=== PATIENT | male | born 1970 | race Caucasian/White ===

== ENCOUNTER 2016-06-07 10:59 | Observation (INO) | payer BC ==
[2016-06-07 11:09] VITALS: RESP 18
[2016-06-07] MEDS ORDERED: RX INFO: IV CONTRAST WAS GIVEN 1 EACH MISC MISCELLANE PRN (11:27)
[2016-06-07] MEDS ORDERED: IPRATROPIUM-ALBUTEROL 3 ML NEB INHALATION STA (11:27)
[2016-06-07] MEDS ORDERED: ENALAPRILAT 1.25 MG/ML 1 ML VIAL IVP STA (11:28)
--- NOTE | 2016-06-07 11:31 | ED ---
General Adult HPI - General Chief complaint: Shortness of Breath Stated complaint: SOB, Chest pain Time Seen by Provider: 06/07/16 11:20 Source: patient, family, RN notes reviewed Mode of arrival: wheelchair Limitations: no limitations - History of Present Illness Initial comments: Patient is a pleasant 46-year-old male presenting to the emergency Department with dyspnea. Patient was diagnosed pneumonia back in January. Patient has had persistent symptoms since that time. Patient has had a decent amount of coughing. Patient occasionally has chest pain. Patient has had recurrent episodes of shortness of breath. Patient has been on antibiotics. Patient has been on steroids twice. Patient was also recently started on an inhaler. Patient has been using the inhaler several times daily. Symptoms are exertional. No leg pain or leg swelling. Patient has not had recent fevers. - Related Data Home Medications Medication Instructions Recorded Confirmed Albuterol Inhaler [Ventolin Hfa 2 puff INHALATION RT-Q4H PRN 06/07/16 06/07/16 Inhaler] Aspirin [Adult Low Dose Aspirin EC] 81 mg PO DAILY 06/07/16 06/07/16 Niacinamide [Niacin] 500 mg PO DAILY 06/07/16 06/07/16 Potassium 99 mg PO DAILY 06/07/16 06/07/16 Triamterene/Hydrochlorothiazid 1 cap PO DAILY 06/07/16 06/07/16 [Triamterene-Hctz 37.5-25 mg Cp] Verapamil Sr [Isoptin Sr] 240 mg PO DAILY 06/07/16 06/07/16 Allergies Allergy/AdvReac Type Severity Reaction Status Date / Time banana Allergy Anaphylaxis Verified 06/07/16 11:34 cat dander Allergy Swelling Verified 06/07/16 11:34 Review of Systems ROS Statement: Those systems with pertinent positive or pertinent negative responses have been documented in the HPI. ROS Other: All systems not noted in ROS Statement are negative. Constitutional: Denies: weakness Eyes: Denies: eye pain ENT: Denies: ear pain Respiratory: Reports: cough, dyspnea Cardiovascular: Reports: chest pain Endocrine: Reports: fatigue Gastrointestinal: Denies: abdominal pain Genitourinary: Denies: dysuria Musculoskeletal: Denies: back pain Skin: Denies: rash Neurological: Denies: headache Past Medical History Past Medical History: Hypertension, Pneumonia Additional Past Medical History / Comment(s): back pain History of Any Multi-Drug Resistant Organisms: None Reported Past Surgical History: Back Surgery Additional Past Surgical History / Comment(s): cervical fusion Past Psychological History: No Psychological Hx Reported Smoking Status: Never smoker Past Alcohol Use History: Daily Past Drug Use History: Marijuana General Exam Limitations: no limitations General appearance: alert, in no apparent distress Head exam: Present: atraumatic Eye exam: Present: normal appearance, PERRL ENT exam: Present: normal oropharynx Neck exam: Present: normal inspection Respiratory exam: Present: decreased breath sounds Cardiovascular Exam: Present: regular rate, normal rhythm Expanded Peripheral pulses: 2+: Radial (R), Radial (L), Posterior Tibialis (R), Posterior Tibialis (L) GI/Abdominal exam: Present: soft. Absent: tenderness Extremities exam: Present: normal inspection. Absent: pedal edema, calf tenderness Neurological exam: Present: alert Psychiatric exam: Present: normal affect, normal mood Skin exam: Absent: rash Course Vital Signs 06/07/16 06/07/16 06/07/16 11:04 11:53 12:03 Pulse Rate 88 71 77 Respiratory 18 Rate Blood Pressure 214/114 O2 Sat by Pulse 98 Oximetry EKG Findings - EKG Comments: EKG Findings:: Normal sinus rhythm at 79. [place] 114. QRS 102. QT 38. QTC 435. Normal axis. Normal QRS. Normal ST-T. Medical Decision Making - Medical Decision Making Patient reevaluated and resting comfortably in bed. Patient does have some diminished air exchange still. Mild wheeze. Case discussed in detail with Dr. Oglesby, who will admit for hospital call. - Lab Data Result diagrams: 06/07/16 11:58 06/07/16 11:58 Lab Results 06/07/16 06/07/16 06/07/16 Range/Units 11:58 11:58 11:58 WBC 7.9 (3.8-10.6) k/uL RBC 5.67 (4.30-5.90) m/uL Hgb 17.2 (13.0-17.5) gm/dL Hct 49.7 (39.0-53.0) % MCV 87.7 (80.0-100.0) fL MCH 30.3 (25.0-35.0) pg MCHC 34.6 (31.0-37.0) g/dL RDW 12.9 (11.5-15.5) % Plt Count 219 (150-450) k/uL Neutrophils % 60 % Lymphocytes % 17 % Monocytes % 6 % Eosinophils % 13 % Basophils % 2 % Neutrophils # 4.7 (1.3-7.7) k/uL Lymphocytes # 1.3 (1.0-4.8) k/uL Monocytes # 0.5 (0-1.0) k/uL Eosinophils # 1.0 H (0-0.7) k/uL Basophils # 0.1 (0-0.2) k/uL PT (9.0-12.0) sec INR (<1.1) APTT (22.0-30.0) sec Sodium 139 (137-145) mmol/L Potassium 4.0 (3.5-5.1) mmol/L Chloride 104 (98-107) mmol/L Carbon Dioxide 23 (22-30) mmol/L Anion Gap 12 mmol/L BUN 14 (9-20) mg/dL Creatinine 0.90 (0.66-1.25) mg/dL Est GFR (MDRD) Af Amer >60 (>60 ml/min/1.73 sqM) Est GFR (MDRD) Non-Af >60 (>60 ml/min/1.73 sqM) Glucose 93 (74-99) mg/dL Calcium 10.2 (8.4-10.2) mg/dL Total Bilirubin 1.0 (0.2-1.3) mg/dL AST 24 (17-59) U/L ALT 38 (21-72) U/L Alkaline Phosphatase 55 (38-126) U/L Total Creatine Kinase 65 (55-170) U/L CK-MB (CK-2) 0.6 (0.0-2.4) ng/mL CK-MB (CK-2) Rel Index 0.9 Troponin I <0.012 (0.000-0.034) ng/mL NT-Pro-B Natriuret Pep pg/mL Total Protein 7.7 (6.3-8.2) g/dL Albumin 4.6 (3.5-5.0) g/dL 06/07/16 06/07/16 Range/Units 11:58 11:58 WBC (3.8-10.6) k/uL RBC (4.30-5.90) m/uL Hgb (13.0-17.5) gm/dL Hct (39.0-53.0) % MCV (80.0-100.0) fL MCH (25.0-35.0) pg MCHC (31.0-37.0) g/dL RDW (11.5-15.5) % Plt Count (150-450) k/uL Neutrophils % % Lymphocytes % % Monocytes % % Eosinophils % % Basophils % % Neutrophils # (1.3-7.7) k/uL Lymphocytes # (1.0-4.8) k/uL Monocytes # (0-1.0) k/uL Eosinophils # (0-0.7) k/uL Basophils # (0-0.2) k/uL PT 10.8 (9.0-12.0) sec INR 1.1 (<1.1) APTT 25.5 (22.0-30.0) sec Sodium (137-145) mmol/L Potassium (3.5-5.1) mmol/L Chloride (98-107) mmol/L Carbon Dioxide (22-30) mmol/L Anion Gap mmol/L BUN (9-20) mg/dL Creatinine (0.66-1.25) mg/dL Est GFR (MDRD) Af Amer (>60 ml/min/1.73 sqM) Est GFR (MDRD) Non-Af (>60 ml/min/1.73 sqM) Glucose (74-99) mg/dL Calcium (8.4-10.2) mg/dL Total Bilirubin (0.2-1.3) mg/dL AST (17-59) U/L ALT (21-72) U/L Alkaline Phosphatase (38-126) U/L Total Creatine Kinase (55-170) U/L CK-MB (CK-2) (0.0-2.4) ng/mL CK-MB (CK-2) Rel Index Troponin I (0.000-0.034) ng/mL NT-Pro-B Natriuret Pep 48 pg/mL Total Protein (6.3-8.2) g/dL Albumin (3.5-5.0) g/dL - Radiology Data Radiology results: image reviewed (Computed tomography scan of the chest shows no pulmonary embolism) Disposition Clinical Impression: Dyspnea Disposition: ADMITTED IP TO THIS HOSP
[2016-06-07 12:22] LABS: Basophils # (A) 0.1 k/uL (0-0.2); Basophils % (A) 2 %; CH 31.3; CHCM 35.8; Eosinophils % (A) 13 %; HCT 49.7 % (39.0-53.0); HDW 2.72; HGB 17.2 gm/dL (13.0-17.5); Luc # (Auto) 0.22; Luc % (Auto) 3; Lymphocytes # (A) 1.3 k/uL (1.0-4.8); Lymphocytes % (A) 17 %; MCH 30.3 pg (25.0-35.0); MCHC 34.6 g/dL (31.0-37.0); MCV 87.7 fL (80.0-100.0); Mean Platelet Volume 6.8; Monocytes # (A) 0.5 k/uL (0-1.0); Monocytes % (A) 6 %; Neutrophils # (A) 4.7 k/uL (1.3-7.7); Neutrophils % (A) 60 %; RBC 5.67 m/uL (4.30-5.90); RDW 12.9 % (11.5-15.5); WBC 7.9 k/uL (3.8-10.6); WBC (Perox) 7.38
[2016-06-07 12:33] LABS: ALT 38 U/L (21-72); AST 24 U/L (17-59); Alkaline Phosphatase 55 U/L (38-126); Anion Gap 12 mmol/L; Blood Urea Nitrogen 14 mg/dL (9-20); Calcium 10.2 mg/dL (8.4-10.2); Carbon Dioxide 23 mmol/L (22-30); Chloride 104 mmol/L (98-107); Glucose 93 mg/dL (74-99); Non-African American GFR(MDRD) >60 (>60 ml/min/1.73 sqM); Sodium 139 mmol/L (137-145); Total Protein 7.7 g/dL (6.3-8.2)
[2016-06-07 12:35] LABS: INR 1.1 (<1.1); Partial Thromboplastin Time 25.5 sec (22.0-30.0); Prothrombin Time 10.8 sec (9.0-12.0)
--- NOTE | 2016-06-07 12:37 | CT ---
CT CHEST FOR PULMONARY EMBOLISM. EXAMINATION TYPE: CT angio chest DATE OF EXAM: 06/07/2016 12:31 PM INDICATION: Shortness of breath CT DLP: 399.4 mGycm, Automated exposure control for dose reduction was used. CONTRAST: Patient injected with 100 mL of Omnipaque 350. COMPARISON: NONE TECHNIQUE: CT of the chest is performed on a spiral scan at 2 mm thick sections. Study is performed with intravenous contrast timed for evaluation for pulmonary embolism. This will limit additional po rtions of the evaluation. 3-D MIP images reconstructed by the technologist are reviewed on the compu ter in the coronal and sagittal planes. FINDINGS: No persistent filling defects are evident to suggest an acute pulmonary embolism. No mediastinal or hilar adenopathy enlarged by CT criteria is evident. The ascending aorta diameter at the level of the main pulmonary artery is 3.4 cm. The main pulmonary artery diameter at the bifur cation is 2.6 cm. Lung windows are clear. Note is made of some mild thickening of the bronchial butler suggesting chroni c bronchitis. Limited CT section through the upper abdomen are unremarkable. IMPRESSIONS: 1. No acute pulmonary embolism.
[2016-06-07 12:41] LABS: Creatine Kinase 65 U/L (55-170)
[2016-06-07 12:54] LABS: Creatine Kinase MB 0.6 ng/mL (0.0-2.4); Troponin I <0.012 ng/mL (0.000-0.034)
[2016-06-07] MEDS ORDERED: IPRATROPIUM-ALBUTEROL 3 ML NEB INHALATION PRN (13:35)
[2016-06-07] MEDS: IPRATROPIUM-ALBUTEROL 3 ML NEB INHALATION SCH ×2 (17:12→19:28)
[2016-06-07 17:41] VITALS: BMI 27.7
[2016-06-07] MEDS: methylPREDNISolone SOD SUCCI 125 MG/2 ML VIAL IV SCH ×2 (18:00→23:29)
[2016-06-08] MEDS: methylPREDNISolone SOD SUCCI 125 MG/2 ML VIAL IV SCH ×2 (05:55→12:58)
[2016-06-08] MEDS: IPRATROPIUM-ALBUTEROL 3 ML NEB INHALATION SCH (07:33)
--- NOTE | 2016-06-08 08:41 | HP ---
DATE OF ADMISSION: 06/07/2016 CHIEF COMPLAINT: Shortness of breath. HISTORY OF PRESENT ILLNESS: Mr. Garcia is a 46-year-old male without significant past medical history except alcohol abuse, drinks about 68 beers per day, came to the hospital with complaints of difficulty breathing and wheezing worsening for the past 3-4 days. Patient says that he was diagnosed with pneumonia back in January 2016 and was on antibiotics and a steroid course and since then he has been having difficulty breathing and wheezing on and off for the past 3-4 months the patient was seen by a primary care physician and was placed on steroid course as well as well as antibiotics. Previous chest x-ray showed no evidence of pneumonia also. Patient denied any allergies. Otherwise, patient has been using inhaler recently and came to the hospital for further evaluation. Patient has been using inhaler every 2 hours. Patient was admitted to the hospital and CT of the chest showed no evidence of pulmonary embolism or pneumonia. The patient denied any heart problems. No congestion noted on chest x-ray. Patient has been drinking 6 to 8 beers per day and does use medical marijuana and the patient says that he likes it. Patient does have a history of chronic back pain and back surgeries x3. REVIEW OF SYSTEMS: CONSTITUTIONAL: No fever. No chills. No weakness. RESPIRATORY: Patient does have cough, no sputum production. Patient does have short of breath and wheezing. CARDIOVASCULAR: No chest pain. Patient does have short of breath. No leg swelling. No palpitations. GENITOURINARY: No dysuria or hematuria. ENDOCRINE: Negative. PSYCHIATRIC: Anxious. MUSCULOSKELETAL: Negative. All other fourteen-point review of systems negative except as above. Past medical history includes: Hypertension, chronic back pain, alcohol abuse. PAST SURGICAL HISTORY: Back surgery, cervical fusion surgery, back surgery, x3. SOCIAL HISTORY: Patient never a smoker. Drinks alcohol daily about 6 to 8 beers per day. Patient does use medical marijuana. FAMILY HISTORY: Father had hypertension, diabetes mellitus, ( ) cancer. ALLERGIES: ( ) CAT DANDER. Home medications include: 1. Albuterol inhaler. 2. Aspirin. 3. Niacin. 4. Potassium. 5. Verapamil. PHYSICAL EXAMINATION: A 46-year-old man lying in bed comfortably, awake, alert, oriented times three appears to be in no apparent distress. VITALS: Blood pressure is 134/87, pulse is 80, respirations 18, temperature afebrile, pulse ox 99% on 2 Liters nasal cannula. HEENT: Atraumatic, normocephalic. Neck is supple. No JVD. CVS: S1, S2 heard. No murmurs, no gallop. LUNGS: Bilateral diffuse wheezing and rhonchi positive. Nonlabored breathing. ABDOMEN: Soft, nontender. Bowel sounds present. CENTRAL NERVOUS SYSTEM: Awake, alert and oriented times three. No focal deficits. EXTREMITIES: No edema. Pulses palpable bilaterally. No clubbing or cyanosis. PSYCHIATRIC: Cooperative, anxious. SKIN: No rash or skin lesions. LABORATORY DATA: WBC 7.9, hemoglobin 17.2, platelets 219. Eosinophils 1.0, INR 1.1. Sodium 139, potassium 4.0, chloride 104, bicarb is 23, BUN 14, creatinine 0.9. Calcium 10.2. Bilirubin 1.0, AST, ALT, alk phos within normal limits. Troponin negative. NT-ProBNP 48, protein is 10.7, albumin 4.6. CT angio of the chest showed no pulmonary embolism. Chest x-ray not done this time. IMPRESSION: 1. Difficulty breathing secondary to acute bronchial asthma possible allergic component. 2. Elevated eosinophilic count. 3. Hypertension. 4. Alcohol abuse on a daily basis. 5. Anxiety. 6. Chronic back pain on medical marijuana use. 7. Deep venous thrombosis prophylaxis heparin subcu. DISCUSSION AND PLAN: The patient will be continued on IV Solu-Medrol and breathing treatments every 4 hours and follow up closely. Pulmonary has been consulted for further evaluation. Continue the home blood pressure medications and further recommendations based on clinical course. No recent change in medications except potassium supplementation. Further recommendations based on the clinical course.
[2016-06-08] MEDS ORDERED: VERAPAMIL SR 240 MG TABLET.ER PO SCH (09:00)
[2016-06-08] MEDS ORDERED: ASPIRIN 81 MG CHEW PO SCH (09:00)
--- NOTE | 2016-06-08 09:04 | P.CRDCN ---
History of Present Illness Consult date: 06/08/16 Reason for Consult (text): Shortness of breath and chest tightness History of present illness: This is a 46-year-old gentleman with no significant past medical history except alcohol abuse who drinks about 6-8 beers per day for came to the hospital with complaints of increasing difficulty breathing and wheezing that has been going on for the last 3 to 4 months. Initially he was seen by primary care physician who prescribed him some steroids and also antibiotics with some improvement. However, the symptoms have been recurring and has been more progressive over the last 3 to4 days and patient came to the hospital. Patient has inhaler at home which he has to use every 2 hours to get relief couple of days ago. Here. His EKG showed sinus rhythm without any acute changes. Cardiac enzyme times one is negative. Patient had a computed tomography scan of the chest which was negative for pulmonary emboli. Chest x-ray did not reveal any acute pathology. Clinically patient doesn't have some expiratory rhonchi and wheezing. The symptoms are suggestive of possible asthma . Patient in addition also complained of a tightness in the chest which is chronic in nature. Doesn't seem to be related to exertional activities. His shortness of breath is mostly exertional, though he has been feeling them sometimes at night. There are some features suggestive of orthopnea. Denied any pedal edema Review of Systems As per the chart Past Medical History Past Medical History: Hypertension, Pneumonia Additional Past Medical History / Comment(s): back pain History of Any Multi-Drug Resistant Organisms: None Reported Past Surgical History: Back Surgery Additional Past Surgical History / Comment(s): cervical fusion, lower back and 2 neck Past Anesthesia/Blood Transfusion Reactions: No Reported Reaction Past Psychological History: No Psychological Hx Reported Smoking Status: Never smoker Past Alcohol Use History: Daily Past Drug Use History: Marijuana - Past Family History Father Family Medical History: Cancer, Hypertension Additional Family Medical History / Comment(s): from lung cancer Mother Additional Family Medical History / Comment(s): brain surgery, depression and suicidal Medications and Allergies Home Medications Medication Instructions Recorded Confirmed Type Albuterol Inhaler [Ventolin Hfa 2 puff INHALATION RT-Q4H PRN 06/07/16 06/07/16 History Inhaler] Aspirin [Adult Low Dose Aspirin EC] 81 mg PO DAILY 06/07/16 06/07/16 History Niacinamide [Niacin] 500 mg PO DAILY 06/07/16 06/07/16 History Potassium 99 mg PO DAILY 06/07/16 06/07/16 History Triamterene/Hydrochlorothiazid 1 cap PO DAILY 06/07/16 06/07/16 History [Triamterene-Hctz 37.5-25 mg Cp] Verapamil Sr [Isoptin Sr] 240 mg PO DAILY 06/07/16 06/07/16 History Allergies Allergy/AdvReac Type Severity Reaction Status Date / Time banana Allergy Anaphylaxis Verified 06/07/16 11:34 cat dander Allergy Swelling Verified 06/07/16 11:34 Physical Exam Vitals: Vital Signs Temp Pulse Pulse Resp BP BP Pulse Ox 06/08/16 08:00 97.8 F 109 H 18 145/100 95 06/08/16 04:00 98.1 F 95 18 143/79 95 06/08/16 00:00 18 06/07/16 23:19 92 18 134/90 94 L 06/07/16 20:00 18 06/07/16 19:49 97.9 F 82 18 139/99 93 L 06/07/16 19:28 78 06/07/16 15:00 98.2 F 80 18 134/87 95 06/07/16 14:30 74 18 136/94 97 06/07/16 13:54 76 18 138/88 96 Intake and Output 06/07/16 06/08/16 06/08/16 22:59 06:59 14:59 Other: Voiding Method Toilet Toilet # Voids 1 Weight 85.3 kg GENERAL EXAM: Patient is alert and oriented and doesn't appear to be in any acute distress HEENT: Normocephalic. Normal reaction of pupils, equal size, normal range of extraocular motion. No erythema or exudates in the throat. NECK: No masses, no nuchal rigidity. CHEST: No chest wall deformity. LUNGS: Mild expiratory rhonchi and wheezing HEART: S1 and S2 normal with no audible mumurs or gallops. Regular rhythm, femorals equal on both sides.. ABDOMEN: No hepatosplenomegaly, normal bowel sounds, no guarding or rigidity. SKIN: No rashes CENTRAL NERVOUS SYSTEM: No focal deficits. EXTREMITIES: No cyanosis, clubbing or edema. Results 06/07/16 11:58 06/07/16 11:58 Current Medications Generic Name Dose Route Start Last Admin Trade Name Freq PRN Reason Stop Dose Admin Albuterol/Ipratropium 3 ml 06/07/16 16:00 06/08/16 07:33 Duoneb 0.5 Mg-3 Mg/3 Ml Soln INHALATION Not Given RT-QID ISAÍAS Albuterol/Ipratropium 3 ml 06/07/16 13:35 Duoneb 0.5 Mg-3 Mg/3 Ml Soln INHALATION RT-Q4H PRN Shortness Of Breath Or Wheezing Aspirin 81 mg 06/08/16 09:00 Aspirin PO DAILY ISAÍAS Methylprednisolone Sodium Succinate 60 mg 06/07/16 18:00 06/08/16 05:55 Solu-Medrol IV 60 mg Q6HR ISAÍAS Administration Miscellaneous Information 1 each 06/07/16 11:27 Rx Info: Iv Contrast Was Given MISCELLANE 06/09/16 11:27 DAILY PRN Per Protocol Verapamil HCl 240 mg 06/08/16 09:00 Isoptin Sr PO DAILY ISAÍAS Intake and Output 06/07/16 06/08/16 06/08/16 22:59 06:59 14:59 Other: Voiding Method Toilet Toilet # Voids 1 Weight 85.3 kg EKG Interpretations (text) Sinus rhythm Assessment and Plan (1) Chest tightness Status: Acute (2) Dyspnea Status: Acute (3) Asthmatic bronchitis Status: Acute Plan: Continue current therapy. I'll get an echocardiogram to assess LV function. We 'll wait further evaluation by forecast analyst. Patient may need a stress test later on to rule out underlying ischemic heart disease.
[2016-06-08 11:58] VITALS: BP 155/88; PULSE 101; TEMP 97.9
--- NOTE | 2016-06-08 15:49 | CONS ---
DATE OF CONSULTATION: 06/08/2016 Reason for consultation is dyspnea. This is a very pleasant 46-year-old gentleman who has a history of hypertension, chronic back pain, daily alcohol use. He states back in January he had an upper respiratory infection and was diagnosed with pneumonia at his primary care physician's office and was treated with antibiotics and steroids without significant improvement. He states this has been going on now for approximately 3 to 4 months now. He has had episodes of shortness of breath, cough, congestion, and wheezing. A CT angiogram of the chest ruled out pulmonary embolism. There was no evidence of pneumonia or other pulmonary abnormalities. He is seen today in consultation. He is awake and alert, in no acute distress. He states he is breathing easier today as compared to yesterday. He is maintaining good O2 saturation in the mid 90s on room air. He has been afebrile. No leukocytosis. His cardiac enzymes were negative, proBNP negative. Past medical history includes hypertension, daily marijuana use, daily alcohol use, chronic back pain. Past surgical history includes back surgery x3. SOCIAL HISTORY: The patient denies cigarette use and is a lifelong nonsmoker. He does, however, use daily marijuana and drinks 6 to 8 beers a day. Allergies are no known drug allergies. Home medication is Verapamil SR 240 mg daily, hydrochlorothiazide 1 capsule daily, niacin 500 mg daily, aspirin 81 mg daily, he had been using an albuterol HFA p.r.n. since January. REVIEW OF SYSTEMS: A 14-point review of system was conducted; all negative other than as mentioned in the HPI. On physical exam, he is alert and oriented, in no acute distress. Vital signs reveal blood pressure 155/88, heart rate 101, respirations 18, temperature is 97.9. He is 94% O2 saturation on room air. His head is normocephalic. Sclerae nonicteric. His neck is supple. Trachea midline. His lungs are clear anterior and posteriorly. He does have end expiratory wheeze on forced expiratory maneuver. His heart is regular, S1, S2. His abdomen is soft, nontender. Bowel sounds are present. There is no peripheral edema. No clubbing. No cyanosis. Peripheral pulses are intact. INVESTIGATIONS: CT angiogram ruled out pulmonary embolism. No other pulmonary abnormalities. Lab results reveal WBC 7.9, hemoglobin 17.2, platelet count 219,000. Sodium 139, potassium 4.0, chloride 104, CO2 of 23. Troponin 0.012. ProBNP 48. His medications are reviewed. IMPRESSION: 1. Dyspnea secondary to suspected chronic bronchial asthma. 2. Marijuana use. 3. Daily alcohol use. 4. Hypertension. PLAN: The patient was seen and evaluated by Dr. Bolden. His CT angiogram and labs were reviewed. The patient most likely has some component of asthma. He is offered an appointment in our office. He will undergo full pulmonary function testing and other work-up to determine the severity and will make recommendations regarding maintenance medications. The patient is agreeable to the plan. He can go home today from the pulmonary standpoint. He is to call sooner with any recurrence of symptoms or other questions or concerns.
--- NOTE | 2016-06-08 16:09 | ECHOF ---
Referral Reason:Chest pain and cardiomyopathy MEASUREMENTS -------- HEIGHT: 175.3 cm WEIGHT: 81.6 kg BP: RVIDd: 2.4 cm (< 3.3) IVSd: 1.2 cm (0.6 - 1.1) LVIDd: 4.3 cm (3.9 - 5.3) LVPWd: 1.0 cm (0.6 - 1.1) IVSs: 1.5 cm LVIDs: 2.1 cm LVPWs: 1.4 cm LA Diam: 2.2 cm (2.7 - 3.8) Ao Diam: 3.6 cm (2.0 - 3.7) AV Cusp: 2.3 cm (1.5 - 2.6) LA Diam: 2.6 cm (2.7 - 3.8) MV EXCURSION: 19.089 mm (> 18.000) MV EF SLOPE: 105 mm/s (70 - 150) EPSS: 0.3 cm MV E Ta: 0.52 m/s MV DecT: 236 ms MV A Ta: 0.59 m/s MV E/A Ratio: 0.87 FINDINGS -------- Sinus rhythm. This was a techncally difficult study with suboptimal views, , Definity utilized for enhancement of images. There is mild concentric left ventricular hypertrophy. Overall left ventricular systolic function is low-normal with, an EF between 50 - 55 %. The right ventricle is normal in size. The left atrial size is normal. The right atrial size is normal. 1.5MG OF DEFINITY UTLIZED: 2 OR MORE WALL SEGMENTS NOT VISUALIZED. There is mild aortic valve sclerosis. There is no evidence of aortic regurgitation. Mild mitral annular calcification present. Mild mitral regurgitation is present. Mild tricuspid regurgitation present. There is no evidence of pulmonary hypertension. The right ventricular systolic pressure, as measured by Doppler, is {RVSP}. The aortic root size is normal. There is no pericardial effusion. CONCLUSIONS -------- 1. This was a techncally difficult study with suboptimal views, , Definity utilized for enhancement of images. 2. The right ventricular systolic pressure, as measured by Doppler, is {RVSP}. 3. There is mild concentric left ventricular hypertrophy. 4. Overall left ventricular systolic function is low-normal with, an EF between 50 - 55 %. 5. 1.5MG OF DEFINITY UTLIZED: 2 OR MORE WALL SEGMENTS NOT VISUALIZED. 6. There is mild aortic valve sclerosis. 7. Mild mitral annular calcification present. 8. Mild mitral regurgitation is present. 9. Mild tricuspid regurgitation present. 10. There is no evidence of pulmonary hypertension. [employer] PRECINCT: Angela Nicolas RDCS
--- NOTE | 2016-06-12 05:49 | DS ---
DATE OF ADMISSION: 06/07/2016 DATE OF DISCHARGE: 06/08/2016 DISCHARGE DIAGNOSES: 1. Difficulty breathing secondary to acute bronchial asthma, suspected possible allergic component. 2. Elevated eosinophilic count. 3. Hypertension. 4. Alcohol abuse on a daily basis. 5. Anxiety. 6. Chronic back pain and medical marijuana use. 7. Deep venous thrombosis prophylaxis. HOSPITAL COURSE: Mr. Garcia is a 46-year-old male without significant past medical history admitted to the hospital with worsening short of breath and cough. Patient apparently has been having these symptoms for the past 3 months, worsened for the last 3 or 4 days and has been on and off steroids over the last few months. Patient was continued on IV steroids in the form of ( ) q.6 hourly and patient did improve symptomatically. Patient was otherwise advised to quit smoking as well as alcohol use. Patient does drink 6 to 8 beers per day. Patient also monitored for alcoholic symptoms. Currently, patient is more awake and oriented. Breathing status improved now. Patient wants to be discharged home and is very anxious about it. Patient was advised to follow up lung clinic and pulmonary clinic with Dr. Bolden as an outpatient. Otherwise, patient is fairly stable to be discharged home. DISCHARGE PHYSICAL EXAMINATION: A 46-year-old male lying on the bed, comfortably. Alert, awake, oriented x3. Appears to be in no apparent distress. VITALS: Blood pressure is 155/88, pulse is 101, respirations 18, temperature afebrile, pulse ox 94% on room air. LABORATORY DATA: Reviewed. Discharge physical examination done. Discharge medications include: 1. Albuterol HFA 2 puffs q.4 to 6 hourly p.r.n. for short of breath. 2. Aspirin 81 mg p.o. daily. 3. Niacin 500 mg p.o. daily. 4. Potassium 99 mg p.o. daily. 5. Triamterene hydrochlorothiazide 1 capsule p.o. daily. 6. Verapamil 240 mg p.o. daily. 7. Prednisone tapering dose. Activity as tolerated. Heart health diet. Follow with Dr. Donny Conroy in 1 to [address] Bolden as an outpatient in one week.
== END 2016-06-08 15:55 | disposition home or self-care (01) ==
LOC: EC 10:59 → 3SUR 13:36 → 3OBS 14:18
PROVIDERS: ADMIT Internal Medicine; ATTEND Internal Medicine
DX: J45.909 Unspecified asthma, uncomplicated (principal); I10 Essential (primary) hypertension; F10.10 Alcohol abuse, uncomplicated; F12.90 Cannabis use, unspecified, uncomplicated; F17.200 Nicotine dependence, unspecified, uncomplicated; F41.9 Anxiety disorder, unspecified; G89.29 Other chronic pain; M54.9 Dorsalgia, unspecified; Z79.82 Long term (current) use of aspirin; Z79.899 Other long term (current) drug therapy; Z82.49 Family history of ischemic heart disease and other diseases of the circulatory system; R07.89 Other chest pain
CPT/HCPCS: 99285 ×2; 96374 ×2; 36415; 94640 ×2; 93005; 93306; 83880; 80053; 82550; 82553; 84484; 85025; 85610; 85730; 87040; 71275; G0378 ×2; J2930 ×2; Q9967; Q9957; 96375; 96376

== ENCOUNTER → 2020-08-11 | Outpatient (CLI) | payer BC ==
--- NOTE | 2020-08-11 07:26 | MR ---
EXAMINATION TYPE: MR knee RT wo con DATE OF EXAM: 08/11/2020 COMPARISON: Pain HISTORY: Rt knee pain and swelling TECHNIQUE: Multiplanar, multisequence imaging of the right knee is performed without IV contrast. FINDINGS: MEDIAL MENISCUS: Anterior and posterior horns are intact without tear. LATERAL MENISCUS: Anterior and posterior horns are intact without tear. CRUCIATE LIGAMENTS: The anterior and posterior cruciate ligaments are intact and unremarkable. COLLATERAL LIGAMENTS: The medial collateral ligament and lateral collateral ligament complex are inta ct and unremarkable. EXTENSOR MECHANISM: Visualized quadriceps and patellar tendons are intact. EFFUSION: There is a small suprapatellar joint effusion. POPLITEAL CYST: There is a small Rosario's cyst. CARTILAGE: There are full-thickness articular cartilage defects throughout the trochlea and patella w ith subchondral marrow edema and cystic formation. BONE MARROW SIGNAL: No focal abnormal marrow signal is otherwise appreciated. OTHER: No additional significant abnormality is appreciated. IMPRESSION: 1. 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 2. Small knee joint effusion. 3. Small Rosario's cyst.
== END | disposition home or self-care (01) ==
LOC: RADMRIMAIN 06:10
DX: M24.151 Other articular cartilage disorders, right hip (principal); M71.21 Synovial cyst of popliteal space [Baker], right knee

== ENCOUNTER → 2022-11-06 | Outpatient (CLI) | payer BC | END | disposition home or self-care (01) | LOC: LABWHC1 08:20 | PROVIDERS: ATTEND Nurse Practitioner Family | DX: R21 Rash and other nonspecific skin eruption (principal) | CPT/HCPCS: 36415; 86038; 86141 ==

== ENCOUNTER → 2024-01-09 | Outpatient (CLI) | payer BC ==
--- NOTE | 2024-01-09 12:52 | CA ---
Transthoracic Echo Report Name: Mohsen Garcia Age: 53 Gender: M : 1970 Exam Date: 01/09/2024 08:38 Exam Location: [facility] Ht (in): 69 Wt (lb): 165 Ordering Physician: Lizbet Metz MD Attending/Referring Phys: Disability Case Manager Gillian Aggarwal RDCS Procedure CPT: Indications: K22.4 DYSKINESIA OF ESOPHAGUS; R07.89 Other chest Cardiac Hx: Technical Quality: Good Contrast 1: Total Dose (mL): Contrast 2: Total Dose (mL): MEASUREMENTS (Male / Female) Normal Values 2D ECHO LV Diastolic Diameter PLAX 4.4 cm 4.2 - 5.9 / 3.9 - 5.3 cm LV Systolic Diameter PLAX 2.8 cm IVS Diastolic Thickness 0.9 cm 0.6 - 1.0 / 0.6 - 0.9 cm LVPW Diastolic Thickness 0.9 cm 0.6 - 1.0 / 0.6 - 0.9 cm LV Relative Wall Thickness 0.4 RV Internal Dim ED PLAX 3.9 cm LV Diastolic Volume MOD BP 83.6 cm??? 67 - 155 / 56 - 104 cm??? LV Systolic Volume MOD BP 30.9 cm??? 22 - 58 / 19 - 49 cm??? LV Ejection Fraction MOD BP 63.1 % >= 55 % LV Cardiac Index MOD BP 2147.0 cm???/min???m??? LV Diastolic Volume MOD 4C 127.1 cm??? LV Systolic Volume MOD 4C 56.7 cm??? LV Ejection Fraction MOD 4C 55.4 % LV Cardiac Index MOD 4C 2866.8 cm???/min???m??? LV Diastolic Length 4C 8.1 cm LV Systolic Length 4C 6.2 cm LV Diastolic Volume MOD 2C 50.0 cm??? LV Systolic Volume MOD 2C 16.0 cm??? LV Ejection Fraction MOD 2C 68.0 % LV Cardiac Index MOD 2C 1384.5 cm???/min???m??? LV Diastolic Length 2C 7.1 cm LV Systolic Length 2C 5.8 cm LA Volume 37.8 cm??? 18 - 58 / 22 - 52 cm??? LA Volume Index 19.7 cm???/m??? 16 - 28 cm???/m??? M-MODE Aortic Root Diameter MM 3.3 cm LA Systolic Diameter MM 3.4 cm LA Ao Ratio MM 1.0 AV Cusp Separation MM 1.9 cm DOPPLER AV Peak Velocity 60.2 cm/s AV Peak Gradient 1.4 mmHg AV Mean Velocity 39.8 cm/s AV Mean Gradient 0.7 mmHg AV Velocity Time Integral 11.0 cm LVOT Peak Velocity 71.9 cm/s LVOT Peak Gradient 2.1 mmHg LVOT Velocity Time Integral 12.7 cm MV Area PHT 3.1 cm??? Mitral E Point Velocity 57.9 cm/s Mitral A Point Velocity 53.2 cm/s Mitral E to A Ratio 1.1 MV Deceleration Time 248.0 ms MV E' Velocity 9.7 cm/s Mitral E to MV E' Ratio 6.0 FINDINGS Left Ventricle Normal Left ventricular size, wall thickness, systolic function with no obvious regional wall motion abnormalities. Normal Left ventricular diastolic filling pattern. Left ventricular ejection fraction is estimated at 55-60 %. Right Ventricle Mild right ventricular dilatation. Normal right ventricular function. RVSP could not be estimated Right Atrium Normal right atrial size. Left Atrium Normal left atrial size. Mitral Valve Structurally normal mitral valve. Mild mitral regurgitation. Aortic Valve Trileaflet aortic valve. No aortic valve stenosis or regurgitation. Tricuspid Valve Structurally normal tricuspid valve. Mild tricuspid regurgitation. Pulmonic Valve Structurally normal pulmonic valve. Pericardium No pericardial effusion. Aorta Normal size aortic root and proximal ascending aorta. CONCLUSIONS Left ventricular ejection fraction is estimated at 55-60 %. Normal Left ventricular diastolic filling pattern. No obvious regional wall motion abnormality Mild right ventricular dilatation. No obvious valvular dysfunction Previewed by: Dr Preet Manzo (Electronically Signed) Final Date: 09 January 2024 12:51
== END | disposition home or self-care (01) ==
LOC: RADECHMAIN 08:12
PROVIDERS: ATTEND Family Medicine
DX: K22.4 Dyskinesia of esophagus (principal); I34.0 Nonrheumatic mitral (valve) insufficiency; I51.7 Cardiomegaly
CPT/HCPCS: 93306

== ENCOUNTER → 2024-02-19 | Outpatient (CLI) | payer BC ==
--- NOTE | 2024-02-19 10:03 | FL ---
EXAMINATION TYPE: FL UGI DATE OF EXAM: 02/19/2024 8:47 AM COMPARISON: None. CLINICAL INDICATION: Male, 54 years old with history of K22.4 dyskinesia of esophagus, chest pain Total Fluoroscopy Time: 2 minutes 2 seconds Total DAP: 50 mGycm2. 44 images obtained. FINDINGS: Status post ACDF. Swallowing mechanism is normal an hypopharyngeal anatomy is preserved. The esophagus has a normal course, caliber, motility and mucosa. There is a small sliding hiatal hernia demonstrated. Gastroesophageal reflux could not be elicited during the course of the exam. The stomach and duodenum are free of any persistent filling defect and demonstrate a normal mucosal p attern. IMPRESSION: Small sliding hiatal hernia. Otherwise, unremarkable upper GI examination. [facility] Raymond Daniel, , 02/19/2024 10:01 AM
== END | disposition home or self-care (01) ==
LOC: RADFLMAIN 07:26
PROVIDERS: ATTEND Family Medicine
DX: K22.4 Dyskinesia of esophagus (principal); K44.9 Diaphragmatic hernia without obstruction or gangrene; R07.9 Chest pain, unspecified
CPT/HCPCS: 74240